=== PATIENT | male | born 1975 | race Caucasian/White ===

== ENCOUNTER 2017-05-31 18:43 | Emergency (ER) | payer BC ==
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
[2017-05-31] MEDS ORDERED: Sodium Chloride 0.9% 1000 ML 1,000 ML IV SCH (19:45)
[2017-05-31] MEDS ORDERED: Sodium Chloride 0.9% 1000 ML 1,000 ML ONE (20:26)
[2017-05-31 20:40] LABS: BASOPHIL % 0.3 % (0.0-0.4); Eosinophil % 1.8 % (0.00-5.0); Granulocytes % 72.4 % (36.0-66.0); Lymphocytes % 16.1 % (24.0-44.0); Mean Cell Volume 91.7 fl (78-100); Mean Corpuscular Hemoglobin 32.1 pg (26-32); Mean Platelet Volume 9.5 fl (6-9.5); Monocytes % 9.4 % (0.0-12.0); Platelet Count 244 K/mm3 (150-450); Red Blood Count 5.04 M/mm3 (4.1-5.6); Red Cell Distribution Width 12.8 % (11.5-14.0)
[2017-05-31 21:01] LABS: ALBUMIN 4.5 g/dL (3.4-5.0); ALKALINE PHOSPHATASE 92 U/L (46-116); ANION GAP 15.7 MEQ/L (5-15); BLOOD UREA NITROGEN 13 mg/dL (9-20); CHLORIDE 98 mEq/L (98-107); Carbon Dioxide 27.4 mEq/L (21-32); Glucose 267 MG/DL (70-110); LIPASE 130 U/L (73-393); MAGNESIUM 1.6 mg/dL (1.8-2.4); SGOT/AST 20 U/L (15-37); SGPT/ALT 41 U/L (12-78); SODIUM 137 mEq/L (136-145); Total Protein 7.7 gm/dL (6.4-8.2)
[2017-05-31 21:47] LABS: Collection Type CLEAN CATCH
[2017-05-31 21:48] LABS: ADD URINE CULTURE? NO (NO); Bilirubin NEGATIVE (NEGATIVE); Blood NEGATIVE Ery/ul (0-5); COMPLETE URINE MICROSCOPIC? NO; Glucose 1000 mg/dL (NEGATIVE); Leukocyte Esterase NEGATIVE (NEGATIVE)
[2017-05-31] MEDS ORDERED: Magnesium 1 Gm / 100 Ml D5W*** 100 ML IV ONE ×2 (22:25→22:37)
[2017-05-31] MEDS ORDERED: NovoLIN R IV ONE (22:26)
[2017-05-31] MEDS ORDERED: NovoLIN R ONE (22:36)
[2017-05-31 23:24] VITALS: BP 136/96; PULSE 83; O2SAT 96
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
== END 2017-05-31 23:20 | disposition short-term general hospital (02) ==
LOC: ED 18:43
DX: R20.0 Anesthesia of skin (principal); S16.1XXA Strain of muscle, fascia and tendon at neck level, initial encounter; S39.012A Strain of muscle, fascia and tendon of lower back, initial encounter; S29.012A Strain of muscle and tendon of back wall of thorax, initial encounter; R07.89 Other chest pain; R10.9 Unspecified abdominal pain; R51 Headache; V43.52XA Car driver injured in collision with other type car in traffic accident, initial encounter
CPT/HCPCS: 36000; 36415; 70450; 71250; 72125; 74176; 76376; 80053; 80307; 81002; 82150; 82550; 83690; 83735; 84484; 85025; 93005; 93041; 96360; 96361; 96365; 96374; 96375; 99285; J3475; L0120; A9270-GY

== ENCOUNTER 2019-09-27 14:08 | Emergency (ER) | payer BC ==
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
[2019-09-27 14:39] LABS: Hematocrit 43.2 % (42-50); Hemoglobin 14.8 gm/dl (12.5-18.0); Mean Cell Volume 94.7 fl (78-100); Mean Corpuscular Hemoglobin 32.5 pg (26-32); Mean Corpuscular Hgb Concent. 34.3 g/dl (32-36); Mean Platelet Volume 9.6 fl (7.5-11.0); Platelet Count 260 K/mm3 (150-450); Red Blood Count 4.56 M/mm3 (4.1-5.6); Red Cell Distribution Width 12.5 % (11.5-14.0); White Blood Count 6.7 K/mm3 (4.0-10.5)
[2019-09-27 14:46] LABS: INR 1.09 (0.8-3.0); PROTIME 12.3 SECONDS (8.83-12.87)
--- NOTE | 2019-09-27 14:52 | XRAY ---
Indication: Chest pain 3-4 weeks. Comparison: June 28, 2019. Portable chest again demonstrates normal heart and lungs. Bony thorax intact.
[2019-09-27] MEDS ORDERED: MORPHINE SULFATE 2 MG INJ IV ONE (14:53)
[2019-09-27] MEDS ORDERED: Zofran 4 MG/2 ML VIAL IV ONE (14:54)
[2019-09-27] MEDS ORDERED: BABY ASPIRIN 81 MG CHEW PO ONE (14:54)
[2019-09-27] MEDS ORDERED: Zofran 4 MG/2 ML VIAL ONE (14:58)
[2019-09-27] MEDS ORDERED: BABY ASPIRIN 81 MG CHEW ONE (14:58)
[2019-09-27] MEDS ORDERED: MORPHINE SULFATE 2 MG INJ ONE (14:58)
[2019-09-27 15:01] LABS: ALBUMIN 4.6 g/dL (3.5-5.0); ALKALINE PHOSPHATASE 88 U/L (38-126); ANION GAP 18.2 MEQ/L (5-15); BLOOD UREA NITROGEN 13 mg/dL (9-20); CHLORIDE 96 mmol/L (98-107); Calcium 9.5 mg/dL (8.4-10.2); Carbon Dioxide 26 mmol/L (22-30); Creatinine 1 0.98 mg/dL (0.66-1.25); Glucose 395 mg/dL (74-106); NT PRO BNP 26.3 pg/mL (0-450); Potassium 3.8 mmol/L (3.5-5.1); SGOT/AST 35 U/L (17-59); SGPT/ALT 49 U/L (0-50); SODIUM 136 mmol/L (137-145); Total Protein 7.7 g/dL (6.3-8.2)
[2019-09-27 16:04] VITALS: BP 120/81; PULSE 54; O2SAT 98
[2019-09-27 22:09] LABS: Lymphocytes 22 % (24-44); Monocyte 8 % (0.0-12.0); Neutrophils 70 % (36.-66.); Platelet Estimate NORMAL (NORMAL); Total Cells Counted 100
== END 2019-09-27 16:19 | disposition home or self-care (01) ==
LOC: ED 14:08
DX: R07.89 Other chest pain (principal); E11.65 Type 2 diabetes mellitus with hyperglycemia; I10 Essential (primary) hypertension; E78.00 Pure hypercholesterolemia, unspecified; Z86.73 Personal history of transient ischemic attack (TIA), and cerebral infarction without residual deficits
CPT/HCPCS: 36000; 36415; 71045; 80053; 83880; 84484; 85025; 85379; 85610; 93005; 93041; 94760; 96374; 96375; 99284; J2270; J2405; A9270-GY

== ENCOUNTER 2019-12-11 20:26 | Emergency (ER) | payer BC ==
[2019-12-11 20:45] VITALS: O2SAT 97
--- NOTE | 2019-12-11 21:52 | ERPHSYRPT ---
- History of Present Illness Time Seen by Provider: 12/11/19 20:32 Source: patient Exam Limitations: no limitations Patient Subjective Stated Complaint: pt states he was feeling unwell at work and had a temp of 101, denies cough or shortness of breath Triage Nursing Assessment: pt alert and oreinted, answers questions approp. pt ambulatory with steady gait noted, respiraitons nonlabored with lungs cta. skin pink warm and dry. Physician History: Patient is here with cough, fever. He does work at [employer] where there has been several COVID-19 cases. Therefore, he was sent home from work. He arrives here for further examination, possible COVID-19 testing. Location: Generalized Quality: Malaise, cough, URI Radiation: None Severity: Mild Duration: Today Timing: Gradual Modifying factors/associated signs and symptoms: Fever at home, no fever here. Timing/Duration: today Cough Quality/Degree: mild Possible Cause: no prior episodes, smoke exposure Modifying Factors: Improves With: nothing Associated Symptoms: denies symptoms International travel in last 2 weeks: No Allergies/Adverse Reactions: ketorolac tromethamine [From Toradol] Allergy (Severe, Verified 12/11/19 20:46) SEIZURE Hx Tetanus, Diphtheria Vaccination/Date Given: Yes Hx Influenza Vaccination/Date Given: No Hx Pneumococcal Vaccination/Date Given: No Immunizations Up to Date: Yes Travel Risk - International Travel Have you traveled outside of the country in past 3 weeks: No Have you or anyone close to you been diagnosed with or: No Do your reside in a community with a known COVID-19 case?: Yes If Yes where:: [place] - Coronavirus Screening Has patient experienced Coronavirus symptoms: Yes Symptoms experienced: fever(equal or > 100.4 F) Date of fever onset:: 12/11/19 - Review of Systems Constitutional: Fever, No Chills Eyes: No Symptoms Ears, Nose, & Throat: No Symptoms Respiratory: Cough, No Dyspnea Cardiac: No Chest Pain, No Edema, No Syncope Abdominal/Gastrointestinal: No Abdominal Pain, No Nausea, No Vomiting, No Diarrhea Genitourinary Symptoms: No Dysuria Musculoskeletal: No Back Pain, No Neck Pain Skin: No Rash Neurological: No Dizziness, No Focal Weakness, No Sensory Changes Psychological: No Symptoms Endocrine: No Symptoms All Other Systems: Reviewed and Negative - Past Medical History Pertinent Past Medical History: Yes Neurological History: TIA Cardiac History: High Cholesterol, Hypertension Respiratory History: No Pertinent History Endocrine Medical History: Diabetes Type II Musculoskeletal History: No Pertinent History GI Medical History: No Pertinent History History: No Pertinent History Psycho-Social History: No Pertinent History Male Reproductive Disorders: No Pertinent History - Past Surgical History Past Surgical History: Yes Neuro Surgical History: No Pertinent History Cardiac: No Pertinent History Respiratory: No Pertinent History Gastrointestinal: No Pertinent History Genitourinary: No Pertinent History Musculoskeletal: No Pertinent History Male Surgical History: No Pertinent History Other Surgical History: urethral surgery - Social History Smoking Status: Current every day smoker How long have you smoked: years Exposure to second hand smoke: Yes Drug Use: none Patient Lives Alone: No - Nursing Vital Signs Nursing Vital Signs: Initial Vital Signs Temperature 98.0 F 12/11/19 20:40 Pulse Rate 86 12/11/19 20:40 Respiratory Rate 18 12/11/19 20:40 Blood Pressure 147/89 12/11/19 20:40 O2 Sat by Pulse Oximetry 97 12/11/19 20:40 Pain Scale Pain Intensity 0 - Physical Exam General Appearance: no apparent distress, alert Eye Exam: PERRL/EOMI, eyes nml inspection Ears, Nose, Throat Exam: normal ENT inspection, TMs normal, pharynx normal, moist mucous membranes Neck Exam: normal inspection, non-tender, supple, full range of motion Respiratory Exam: normal breath sounds, lungs clear, No respiratory distress Cardiovascular Exam: regular rate/rhythm, normal heart sounds Gastrointestinal/Abdomen Exam: soft, No tenderness Back Exam: normal inspection, No CVA tenderness, No vertebral tenderness Extremity Exam: normal inspection, normal range of motion Neurologic Exam: alert, oriented x 3, cooperative, normal mood/affect, sensation nml, No motor deficits Skin Exam: normal color, warm, dry, No rash Lymphatic Exam: No adenopathy SpO2 Interpretation: normal SpO2: 97 Ordered Tests: Active Orders 24 hr Category Date Time Status Isolation, Initiate & Maintain Q12H Care 12/11/19 20:46 Active - Progress Progress: improved Air Movement: good Progress Note: 12/11/19 21:57 Patient looks well with no distress here. Lung sounds are clear. Overall physical exam is unremarkable. Patient has no fever here either. I did discuss over the phone with on-call infection control nurse, Delaney. She did not recommend, did not give permission to test the patient for COVID-19. She states that they like the patient to have symptoms for 2 to 3 days and then be tested by the PCP. I did explain this to the patient. I discussed that he will be in quarantine the next 14 days or until which time he can be tested by his PCP. He can return here at any given time for new or changing symptoms. He states his understanding will follow-up as described. Blood Culture(s) Obtained: No Antibiotics given: No Counseled pt/family regarding: diagnosis, need for follow-up - Departure Departure Disposition: Home Clinical Impression: Suspected COVID-19 virus infection, URI (upper respiratory infection) Condition: Stable Critical Care Time: No Referrals: YOLANDA DONALDSON [Primary Care Provider] - Instructions: Fever, Adult (DC) Additional Instructions: Follow-up with Dr. Donaldson in 2 to 3 days for reexam and COVID testing. Until then you are directed to self quarantine. You may return here at any given time for new or changing symptoms. Please read over quarantine instructions that were provided to you by us. If you have any questions you can call or return here at any time.
[2019-12-11 22:22] VITALS: BP 140/88; PULSE 78
== END 2019-12-11 22:35 | disposition home or self-care (01) ==
LOC: ED 20:26
DX: J06.9 Acute upper respiratory infection, unspecified (principal); Z20.828 Contact with and (suspected) exposure to other viral communicable diseases
CPT/HCPCS: 99283

== ENCOUNTER 2020-09-09 04:44 | Observation (INO) | payer BC ==
--- NOTE | 2020-09-09 05:07 | ERPHSYRPT ---
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) Exam Limitations: clinical condition Timing/Duration: today Severity: moderate Character of Deficits: new weakness, impaired speech Deficits: weak Baseline/Normal Cognition: alert oriented x 3 Current Cognition: alert but confused Baseline Gait: walks w/o assistance Associated Symptoms: confusion, paresthesia Allergies/Adverse Reactions: ketorolac tromethamine [From Toradol] Allergy (Severe, Verified 09/09/20 05:16) SEIZURE Home Medications: Amitriptyline HCl 25 mg PO DAILY 09/09/20 [History] Ezetimibe 10 mg PO DAILY 09/09/20 [History] Hx Tetanus, Diphtheria Vaccination/Date Given: Yes Hx Influenza Vaccination/Date Given: No Hx Pneumococcal Vaccination/Date Given: No - Review of Systems Constitutional: No Fever, No Chills Eyes: No Symptoms Ears, Nose, & Throat: No Symptoms Respiratory: No Cough, No Dyspnea Cardiac: No Chest Pain, No Edema, No Syncope Abdominal/Gastrointestinal: No Abdominal Pain, No Nausea, No Vomiting, No Diarrhea Genitourinary Symptoms: No Dysuria Musculoskeletal: No Back Pain, No Neck Pain Skin: No Rash Neurological: No Dizziness, No Focal Weakness, No Sensory Changes Psychological: No Symptoms Endocrine: No Symptoms All Other Systems: Reviewed and Negative - Past Medical History Pertinent Past Medical History: Yes Neurological History: TIA ENT History: No Pertinent History Cardiac History: High Cholesterol, Hypertension Respiratory History: No Pertinent History Endocrine Medical History: Diabetes Type II Musculoskeletal History: No Pertinent History GI Medical History: No Pertinent History History: No Pertinent History Psycho-Social History: No Pertinent History Male Reproductive Disorders: No Pertinent History - Past Surgical History Past Surgical History: Yes Neuro Surgical History: No Pertinent History Cardiac: No Pertinent History Respiratory: No Pertinent History Gastrointestinal: No Pertinent History Genitourinary: No Pertinent History Musculoskeletal: No Pertinent History Male Surgical History: No Pertinent History Other Surgical History: urethral surgery - Social History Smoking Status: Current every day smoker How long have you smoked: years Exposure to second hand smoke: Yes Drug Use: none Patient Lives Alone: No - Nursing Vital Signs Nursing Vital Signs: Initial Vital Signs Temperature 98.3 F 09/09/20 04:53 Pulse Rate 89 09/09/20 04:53 Respiratory Rate 16 09/09/20 04:53 Blood Pressure 142/97 09/09/20 04:53 O2 Sat by Pulse Oximetry 98 09/09/20 04:53 Pain Scale Pain Intensity 0 - Acosta Coma Scale Best Eye Response (Merlin): (4) open spontaneously Best Verbal Response (Acosta): (4) confused conversation Best Motor Response (Acosta): (6) obeys commands Merlin Total: 14 - Physical Exam General Appearance: no apparent distress, alert Eye Exam: bilateral eye: PERRL, EOMI Ears, Nose, Throat Exam: normal ENT inspection, moist mucous membranes Neck Exam: normal inspection, non-tender, supple Respiratory: normal breath sounds, lungs clear, airway intact, No respiratory distress Cardiovascular: regular rate/rhythm, No edema Gastrointestinal: soft, No tenderness, No distention Rectal Exam: deferred Back Exam: normal inspection Extremity Exam: normal inspection, No pedal edema Peripheral Pulses: carotid (R): 2+, carotid (L): 2+, femoral (R): 2+, femoral (L): 2+, dorsalis-pedis (R): 2+, dorsalis-pedis (L): 2+ Mental Status: alert, cooperative, disoriented to time manager engagement Exam: PERRL, tongue midline Coordination/Gait: normal finger to nose, normal gait Motor/Sensory: no pronator drift, weak motor strength LUE DTR: bicep (R): 2+, bicep (L): 2+, tricep (R): 2+, tricep (L): 2+, knee (R): 2+, knee (L): 2+, ankle (R): 2+, ankle (L): 2+ Skin Exam: normal color, warm, dry, No rash SpO2 Interpretation: normal SpO2: 98 O2 Delivery: Room Air - Course Nursing assessment & vital signs reviewed: Yes EKG Interpreted by Me: Sinus Rhythm, NORMAL AXIS, NORMAL INTERVALS, NORMAL QRS, Non-specific ST Changes - Radiology Exams Chest X-ray Interpretation: Reviewed by me, No Pneumothorax, Other (interstitial pattern and granulomata similar to prior) - CT Exams Head CT Interpretation: Tele-radiologist Report, No/Intracranial Hemorrhag Ordered Tests: Active Orders 24 hr Category Date Time Status Management Development Specialist STAT Care 09/09/20 05:10 Active Clean Catch Urine Specimen STAT Care 09/09/20 05:07 Active EKG-ER Only STAT Care 09/09/20 05:07 Active IV Insertion STAT Care 09/09/20 05:07 Active NPO (ED) STAT Care 09/09/20 05:07 Active Pulse Oximetry (ED) STAT Care 09/09/20 05:07 Active CHEST 1 VIEW (PORTABLE) Stat Exams 09/09/20 05:08 Taken HEAD WITHOUT CONTRAST [CT] Stat Exams 09/09/20 05:15 Taken CBC W DIFF Stat Lab 09/09/20 05:07 Completed CMP Stat Lab 09/09/20 05:07 Completed ETHYL ALCOHOL Stat Lab 09/09/20 05:07 Completed Lactic Acid Stat Lab 09/09/20 05:15 Completed POCT GLUCOSE Stat Lab 09/09/20 04:54 Completed PROTIME WITH INR Stat Lab 09/09/20 05:07 Completed PTT Stat Lab 09/09/20 05:07 Completed TROPONIN Q3H Lab 09/09/20 05:15 Completed TROPONIN Q3H Lab 09/09/20 08:15 Ordered TROPONIN Q3H Lab 09/09/20 11:15 Ordered TROPONIN Q3H Lab 09/09/20 14:15 Ordered TROPONIN Q3H Lab 09/09/20 17:15 Ordered UA W/RFX UR CULTURE Stat Lab 09/09/20 05:19 Completed Urine Triage Profile Stat Lab 09/09/20 05:19 Completed Medication Summary Generic Name Dose Route Start Last Admin Trade Name Freq PRN Reason Stop Dose Admin Sodium Chloride 1,000 mls @ 100 mls/hr 09/09/20 05:15 09/09/20 07:10 Sodium Chloride 0.9% 1000 Ml IV 10/09/20 05:14 100 mls/hr .Q10H [place] Administration Discontinued Medications Generic Name Dose Route Start Last Admin Trade Name Freq PRN Reason Stop Dose Admin Sodium Chloride 1,000 mls @ 999 mls/hr 09/09/20 05:26 09/09/20 07:19 Sodium Chloride 0.9% 1000 Ml IV 09/09/20 06:26 Infused .Q1H1M STA Infusion Lab/Rad Data: Laboratory Result Diagrams 09/09/20 05:07 09/09/20 05:07 Laboratory Results 09/09/20 09/09/20 09/09/20 Range/Units 05:19 05:19 05:15 WBC (4.0-10.5) K/mm3 RBC (4.1-5.6) M/mm3 Hgb (12.5-18.0) gm/dl Hct (42-50) % MCV (78-100) fl MCH (26-32) pg MCHC (32-36) g/dl RDW (11.5-14.0) % Plt Count (150-450) K/mm3 MPV (7.5-11.0) fl Gran % (36.0-66.0) % Eos # (Auto) (0-0.5) Absolute Lymphs (auto) (1.0-4.6) Absolute Monos (auto) (0.0-1.3) Lymphocytes % (24.0-44.0) % Monocytes % (0.0-12.0) % Eosinophils % (0.00-5.0) % Basophils % (0.0-0.4) % Absolute Granulocytes (1.4-6.9) Basophils # (0-0.4) PT (8.83-12.87) SECONDS INR (0.8-3.0) APTT (24.1-36.1) SECONDS Sodium (137-145) mmol/L Potassium (3.5-5.1) mmol/L Chloride (98-107) mmol/L Carbon Dioxide (22-30) mmol/L Anion Gap (5-15) MEQ/L BUN (9-20) mg/dL Creatinine (0.66-1.25) mg/dL Estimated GFR ML/MIN Glucose (74-106) mg/dL POC Glucometer (74 to 106) mg/dL Lactic Acid (0.4-2.0) Calcium (8.4-10.2) mg/dL Total Bilirubin (0.2-1.3) mg/dL AST (17-59) U/L ALT (0-50) U/L Alkaline Phosphatase (38-126) U/L Troponin I < 0.012 (0.000-0.034) ng/mL Serum Total Protein (6.3-8.2) g/dL Albumin (3.5-5.0) g/dL Urine Color YELLOW (YELLOW) Urine Appearance CLEAR (CLEAR) Urine pH 6.0 (5-6) Ur Specific [employer] 1.021 (1.005-1.025) Urine Protein NEGATIVE (Negative) Urine Ketones NEGATIVE (NEGATIVE) Urine Blood NEGATIVE (0-5) Mikey/ul Urine Nitrite NEGATIVE (NEGATIVE) Urine Bilirubin NEGATIVE (NEGATIVE) Urine Urobilinogen NEGATIVE (0-1) mg/dL Ur Leukocyte Esterase NEGATIVE (NEGATIVE) Urine WBC (Auto) NONE (0-5) /HPF Urine RBC (Auto) NONE (0-2) /HPF U Epithel Cells (Auto) NONE (FEW) /HPF Urine Bacteria (Auto) NONE (NEGATIVE) /HPF Urine Culture Reflexed NO (NO) Urine Glucose >=500 (NEGATIVE) mg/dL Urine Opiates Level NEGATIVE (NEGATIVE) Ur Methadone NEGATIVE (NEGATIVE) Urine Barbiturates NEGATIVE (NEGATIVE) Ur Phencyclidine (PCP) NEGATIVE (NEGATIVE) Urine Amphetamine NEGATIVE (NEGATIVE) U Benzodiazepine Level NEGATIVE (NEGATIVE) Urine Cocaine NEGATIVE (NEGATIVE) Urine Marijuana (THC) NEGATIVE (NEGATIVE) Ethyl Alcohol (0-10) mg/dL 09/09/20 09/09/20 09/09/20 Range/Units 05:15 05:07 05:07 WBC (4.0-10.5) K/mm3 RBC (4.1-5.6) M/mm3 Hgb (12.5-18.0) gm/dl Hct (42-50) % MCV (78-100) fl MCH (26-32) pg MCHC (32-36) g/dl RDW (11.5-14.0) % Plt Count (150-450) K/mm3 MPV (7.5-11.0) fl Gran % (36.0-66.0) % Eos # (Auto) (0-0.5) Absolute Lymphs (auto) (1.0-4.6) Absolute Monos (auto) (0.0-1.3) Lymphocytes % (24.0-44.0) % Monocytes % (0.0-12.0) % Eosinophils % (0.00-5.0) % Basophils % (0.0-0.4) % Absolute Granulocytes (1.4-6.9) Basophils # (0-0.4) PT 11.1 (8.83-12.87) SECONDS INR 0.98 (0.8-3.0) APTT 28.6 (24.1-36.1) SECONDS Sodium 133 L (137-145) mmol/L Potassium 3.8 (3.5-5.1) mmol/L Chloride 97 L (98-107) mmol/L Carbon Dioxide 26 (22-30) mmol/L Anion Gap 13.3 (5-15) MEQ/L BUN 15 (9-20) mg/dL Creatinine 0.85 (0.66-1.25) mg/dL Estimated GFR > 60.0 ML/MIN Glucose 338 H (74-106) mg/dL POC Glucometer (74 to 106) mg/dL Lactic Acid 2.6 H (0.4-2.0) Calcium 9.5 (8.4-10.2) mg/dL Total Bilirubin 0.30 (0.2-1.3) mg/dL AST 47 (17-59) U/L ALT 68 H (0-50) U/L Alkaline Phosphatase 73 (38-126) U/L Troponin I (0.000-0.034) ng/mL Serum Total Protein 6.4 (6.3-8.2) g/dL Albumin 4.1 (3.5-5.0) g/dL Urine Color (YELLOW) Urine Appearance (CLEAR) Urine pH (5-6) Ur Specific [employer] [place] (1.005-1.025) Urine Protein (Negative) Urine Ketones (NEGATIVE) Urine Blood (0-5) Mikey/ul Urine Nitrite (NEGATIVE) Urine Bilirubin (NEGATIVE) Urine Urobilinogen (0-1) mg/dL Ur Leukocyte Esterase (NEGATIVE) Urine WBC (Auto) (0-5) /HPF Urine RBC (Auto) (0-2) /HPF U Epithel Cells (Auto) (FEW) /HPF Urine Bacteria (Auto) (NEGATIVE) /HPF Urine Culture Reflexed (NO) Urine Glucose (NEGATIVE) mg/dL Urine Opiates Level (NEGATIVE) Ur Methadone (NEGATIVE) Urine Barbiturates (NEGATIVE) Ur Phencyclidine (PCP) (NEGATIVE) Urine Amphetamine (NEGATIVE) U Benzodiazepine Level (NEGATIVE) Urine Cocaine (NEGATIVE) Urine Marijuana (THC) (NEGATIVE) Ethyl Alcohol < 10 (0-10) mg/dL 09/09/20 09/09/20 Range/Units 05:07 04:54 WBC 7.3 (4.0-10.5) K/mm3 RBC 4.12 (4.1-5.6) M/mm3 Hgb 13.1 (12.5-18.0) gm/dl Hct 38.4 L (42-50) % MCV 93.2 (78-100) fl MCH 31.8 (26-32) pg MCHC 34.1 (32-36) g/dl RDW 12.4 (11.5-14.0) % Plt Count 261 (150-450) K/mm3 MPV 9.4 (7.5-11.0) fl Gran % 67.6 H (36.0-66.0) % Eos # (Auto) 0.10 (0-0.5) Absolute Lymphs (auto) 1.68 (1.0-4.6) Absolute Monos (auto) 0.56 (0.0-1.3) Lymphocytes % 23.0 L (24.0-44.0) % Monocytes % 7.7 (0.0-12.0) % Eosinophils % 1.4 (0.00-5.0) % Basophils % 0.3 (0.0-0.4) % Absolute Granulocytes 4.93 (1.4-6.9) Basophils # 0.02 (0-0.4) PT (8.83-12.87) SECONDS INR (0.8-3.0) APTT (24.1-36.1) SECONDS Sodium (137-145) mmol/L Potassium (3.5-5.1) mmol/L Chloride (98-107) mmol/L Carbon Dioxide (22-30) mmol/L Anion Gap (5-15) MEQ/L BUN (9-20) mg/dL Creatinine (0.66-1.25) mg/dL Estimated GFR ML/MIN Glucose (74-106) mg/dL POC Glucometer 318 H (74 to 106) mg/dL Lactic Acid (0.4-2.0) Calcium (8.4-10.2) mg/dL Total Bilirubin (0.2-1.3) mg/dL AST (17-59) U/L ALT (0-50) U/L Alkaline Phosphatase (38-126) U/L Troponin I (0.000-0.034) ng/mL Serum Total Protein (6.3-8.2) g/dL Albumin (3.5-5.0) g/dL Urine Color (YELLOW) Urine Appearance (CLEAR) Urine pH (5-6) Ur Specific [employer] [place] (1.005-1.025) Urine Protein (Negative) Urine Ketones (NEGATIVE) Urine Blood (0-5) Mikey/ul Urine Nitrite (NEGATIVE) Urine Bilirubin (NEGATIVE) Urine Urobilinogen (0-1) mg/dL Ur Leukocyte Esterase (NEGATIVE) Urine WBC (Auto) (0-5) /HPF Urine RBC (Auto) (0-2) /HPF U Epithel Cells (Auto) (FEW) /HPF Urine Bacteria (Auto) (NEGATIVE) /HPF Urine Culture Reflexed (NO) Urine Glucose (NEGATIVE) mg/dL Urine Opiates Level (NEGATIVE) Ur Methadone (NEGATIVE) Urine Barbiturates (NEGATIVE) Ur Phencyclidine (PCP) (NEGATIVE) Urine Amphetamine (NEGATIVE) U Benzodiazepine Level (NEGATIVE) Urine Cocaine (NEGATIVE) Urine Marijuana (THC) (NEGATIVE) Ethyl Alcohol (0-10) mg/dL - Progress Progress: improved, re-examined Progress Note: 09/09/20 05:18 initial GCS of 14 , but now 15 and oriented x3 , however left sided slight weakness of LUE and LLE are still noted, but also improved . Pt states feels like his prior TIA back in 2010. 09/09/20 05:21 09/09/20 07:21 discussed with pt and Neuro tele and Dr. Parsons and will place in on Obs for TIA with all in agreement with thes neurologist recommendation. Discussed with : Corbin Will see patient in: hospital (observation) Counseled pt/family regarding: lab results, diagnosis, need for follow-up, rad results - Departure Departure Disposition: Observation Clinical Impression: TIA (transient ischemic attack), Hyperglycemia Condition: Good Critical Care Time: Yes Critical Care Time(excluding separately billable procedures): Critical 30-74 mins (critical care for CVA symptoms and eval approx 30 minutes) Referrals: YOLANDA GORDON [Primary Care Provider] -
[2020-09-09] MEDS ORDERED: Sodium Chloride 0.9% 1000 ML 1,000 ML IV SCH ×2 (05:15→07:50)
[2020-09-09] MEDS ORDERED: Sodium Chloride 0.9% 1000 ML 1,000 ML ONE ×2 (05:19→07:06)
[2020-09-09 05:25] LABS: Absolute Neutrophil Ct (ANC) 4.93 (1.4-6.9); BASOPHIL % 0.3 % (0.0-0.4); Basophil (Absolute #) 0.02 (0-0.4); Eosinophil % 1.4 % (0.00-5.0); Hematocrit 38.4 % (42-50); Hemoglobin 13.1 gm/dl (12.5-18.0); Lymphocyte (Absolute #) 1.68 (1.0-4.6); Mean Cell Volume 93.2 fl (78-100); Mean Corpuscular Hemoglobin 31.8 pg (26-32); Mean Corpuscular Hgb Concent. 34.1 g/dl (32-36); Mean Platelet Volume 9.4 fl (7.5-11.0); Monocyte (Absolute #) 0.56 (0.0-1.3); Monocytes % 7.7 % (0.0-12.0); Neutrophil % 67.6 % (36.0-66.0); Platelet Count 261 K/mm3 (150-450); Red Blood Count 4.12 M/mm3 (4.1-5.6); Red Cell Distribution Width 12.4 % (11.5-14.0); White Blood Count 7.3 K/mm3 (4.0-10.5)
[2020-09-09 05:26] LABS: INR 0.98 (0.8-3.0); PROTIME 11.1 SECONDS (8.83-12.87)
[2020-09-09] MEDS ORDERED: Sodium Chloride 0.9% 1000 ML 1,000 ML IV STA (05:26)
[2020-09-09 05:29] LABS: Appearance CLEAR (CLEAR); Bilirubin NEGATIVE (NEGATIVE); Blood NEGATIVE Ery/ul (0-5); Glucose >=500 mg/dL (NEGATIVE); Ketones NEGATIVE (NEGATIVE); Leukocyte Esterase NEGATIVE (NEGATIVE); Nitrite NEGATIVE (NEGATIVE); Protein,Urine Dip NEGATIVE (Negative); Specific Gravity 1.021 (1.005-1.025); Urobilinogen NEGATIVE mg/dL (0-1)
[2020-09-09 05:29] LABS: PTT 28.6 SECONDS (24.1-36.1)
[2020-09-09 05:31] LABS: ALBUMIN 4.1 g/dL (3.5-5.0); ALKALINE PHOSPHATASE 73 U/L (38-126); ANION GAP 13.3 MEQ/L (5-15); BLOOD UREA NITROGEN 15 mg/dL (9-20); CHLORIDE 97 mmol/L (98-107); Calcium 9.5 mg/dL (8.4-10.2); Carbon Dioxide 26 mmol/L (22-30); Creatinine 1 0.85 mg/dL (0.66-1.25); EST GLOMERULAR FILTRATION RATE > 60.0 ML/MIN; ETHYL ALCOHOL < 10 mg/dL (0-10); Glucose 338 mg/dL (74-106); Potassium 3.8 mmol/L (3.5-5.1); SGOT/AST 47 U/L (17-59); SGPT/ALT 68 U/L (0-50); SODIUM 133 mmol/L (137-145); Total Protein 6.4 g/dL (6.3-8.2)
[2020-09-09 05:42] LABS: Amphetamine,Urine NEGATIVE (NEGATIVE); Barbiturate,Urine NEGATIVE (NEGATIVE); Benzodiazepine,Urine NEGATIVE (NEGATIVE); Cocaine,Urine NEGATIVE (NEGATIVE); Methadone,Urine NEGATIVE (NEGATIVE); Opiate,Urine NEGATIVE (NEGATIVE); PCP,Urine NEGATIVE (NEGATIVE); THC,Urine NEGATIVE (NEGATIVE)
[2020-09-09] MEDS ORDERED: Zofran 4 MG/2 ML VIAL IV PRN (07:50)
[2020-09-09] MEDS ORDERED: MORPHINE SULFATE 2 MG INJ IV PRN (07:50)
[2020-09-09] MEDS ORDERED: TYLENOL 325 MG PO PRN (07:50)
[2020-09-09] MEDS ORDERED: HUMULIN R SQ PRN (07:50)
--- NOTE | 2020-09-09 08:59 | XRAY ---
Indication: Acute mental status change. Slurred speech. Paresthesia. Comparison: September 27, 2019. Portable chest clear of focal infiltrate, consolidation, or large effusion. Heart is not enlarged. Bony thorax intact. Impression: Continued nonacute chest.
[2020-09-09] MEDS: Nicoderm CQ 21 MG TOP SCH (09:07)
[2020-09-09] MEDS: PLAVIX 75 MG Tablet PO SCH (09:08)
[2020-09-09] MEDS: Pepcid 20 MG VIAL IV SCH ×2 (09:08→21:22)
[2020-09-09] MEDS: ECOTRIN 81 MG PO SCH (09:49)
[2020-09-09] MEDS ORDERED: NPH HUMAN INSULIN ISOPHANE SQ SCH (10:00)
[2020-09-09] MEDS ORDERED: Ecotrin 325 MG PO SCH (10:00)
[2020-09-09] MEDS: ELAVIL 25 MG PO SCH (10:51)
[2020-09-09] MEDS: Glucophage 500 MG PO SCH ×2 (10:51→16:27)
[2020-09-09] MEDS: Zetia 10 MG PO SCH ×2 (10:54→10:56)
[2020-09-09] MEDS: Novolin N SQ SCH ×2 (10:55→16:27)
[2020-09-09] MEDS ORDERED: XANAX 1 MG PO ONE (12:30)
[2020-09-09] MEDS: HUMULIN R SQ SCH ×2 (14:34→16:27)
--- NOTE | 2020-09-09 16:42 | XRAY ---
Indication: TIA. Two-dimensional sonogram and color Doppler imaging of the carotid arteries of the neck performed. Comparison: None Examination of the right carotid circulation negative for focal plaquing, critical stenosis, or obstruction. Proximal internal carotid artery is mildly tortuous. PSV of the CCA is 119 cm/s. PSV of the ICA is 84 cm/s. ICA/CCA ratio is 0.7. Normal antegrade vertebral artery flow. Examination of the left carotid circulation demonstrates widely patent common carotid, carotid bulb, internal carotid, and external carotid arteries. PSV of the CCA is 95 m/s. PSV of the ICA is 89 cm/s. ICA/CCA ratio is 0.9. Normal antegrade vertebral artery flow. Impression: Left and right carotid arteries of the neck are negative for significant plaquing, critical stenosis, or obstruction. Velocity measurements and ratios are also negative for hemodynamically significant flow-limiting stenosis.
[2020-09-10 05:13] LABS: Absolute Neutrophil Ct (ANC) 2.64 (1.4-6.9); BASOPHIL % 0.6 % (0.0-0.4); Basophil (Absolute #) 0.03 (0-0.4); Eosinophil % 2.5 % (0.00-5.0); Eosinophil (Absolute #) 0.13 (0-0.5); Hemoglobin 13.1 gm/dl (12.5-18.0); Lymphocyte (Absolute #) 1.98 (1.0-4.6); Lymphocytes % 37.5 % (24.0-44.0); Mean Cell Volume 94.4 fl (78-100); Mean Corpuscular Hemoglobin 31.7 pg (26-32); Mean Corpuscular Hgb Concent. 33.6 g/dl (32-36); Mean Platelet Volume 9.5 fl (7.5-11.0); Monocytes % 9.5 % (0.0-12.0); Neutrophil % 49.9 % (36.0-66.0); Platelet Count 216 K/mm3 (150-450); Red Blood Count 4.13 M/mm3 (4.1-5.6); Red Cell Distribution Width 12.7 % (11.5-14.0); White Blood Count 5.3 K/mm3 (4.0-10.5)
[2020-09-10 05:51] LABS: ALBUMIN 3.3 g/dL (3.5-5.0); ALKALINE PHOSPHATASE 46 U/L (38-126); ANION GAP 9.7 MEQ/L (5-15); BLOOD UREA NITROGEN 10 mg/dL (9-20); CHLORIDE 104 mmol/L (98-107); Calcium 8.9 mg/dL (8.4-10.2); Carbon Dioxide 25 mmol/L (22-30); EST GLOMERULAR FILTRATION RATE > 60.0 ML/MIN; Glucose 215 mg/dL (74-106); Potassium 3.6 mmol/L (3.5-5.1); SGOT/AST 42 U/L (17-59); SGPT/ALT 63 U/L (0-50); SODIUM 136 mmol/L (137-145); Total Protein 5.8 g/dL (6.3-8.2)
[2020-09-10 07:46] VITALS: BP 120/69; PULSE 61; O2SAT 98
[2020-09-10] MEDS: Nicoderm CQ 21 MG TOP SCH (09:27)
[2020-09-10] MEDS: ECOTRIN 81 MG PO SCH (09:27)
[2020-09-10] MEDS: Glucophage 500 MG PO SCH (09:27)
[2020-09-10] MEDS: Pepcid 20 MG VIAL IV SCH (09:27)
[2020-09-10] MEDS: ELAVIL 25 MG PO SCH (09:28)
[2020-09-10] MEDS: PLAVIX 75 MG Tablet PO SCH (09:28)
[2020-09-10] MEDS: Novolin N SQ SCH (09:28)
[2020-09-10] MEDS: HUMULIN R SQ SCH (09:29)
--- NOTE | 2020-09-11 07:39 | XRAY ---
Indication: Slurred speech, weakness, dizziness, confusion, and paresthesia. Multiple contiguous axial images obtained through the head without contrast. Comparison: May 31, 2017. No acute intracranial hemorrhage, abnormal extra axial fluid collection, of mass effect. Tint remote right basal ganglia lacunar infarct. Fourth ventricle is midline. Bony calvarium. Visualized paranasal sinuses and mastoid air cells are clear. Impression: Right basal ganglia remote lacunar infarct. Remaining CT head without contrast exam is negative. Comment: Preliminary interpretation was made by [facility]. No critical discrepancy.
--- NOTE | 2020-09-11 10:24 | ECHO ---
Transthoracic echocardiographic examination and color Doppler was done on 09/09/2020. INDICATION: Transient ischemic attack. IMPRESSION: 1) NO REGIONAL WALL MOTION ABNORMALITY. ESTIMATED GLOBAL LEFT VENTRICULAR EJECTION FRACTION BETWEEN 60 AND 70%. 2) MILD MITRAL REGURGITATION. 3) TRACE TRICUSPID REGURGITATION. RIGHT VENTRICULAR SYSTOLIC PRESSURE OF 31 MM OF MERCURY. 4) TRACE AORTIC REGURGITATION. 5) LEFT VENTRICULAR HYPERTROPHY. 6) MILDLY DILATED ASCENDING AORTA MEASURING ABOUT 4.2 CM. The left ventricle is visualized and demonstrated adequate motion of all the segments. Estimated global left ventricular ejection fraction of around 60 to 70%. There is concentric left ventricular hypertrophy. The mitral valve is seen and this opens adequately. There is mild mitral regurgitation. Left atrium is normal. The aortic valve is mildly thickened but opens adequately. The peak gradient across the left ventricular outflow tract was 13. The ascending aorta appears to be mildly dilated measuring about 4.2 cm. There is trace tricuspid regurgitation. The right side chambers are normal. There is trace tricuspid regurgitation. Right ventricular systolic pressure of 31 mm of [place].
--- NOTE | 2020-09-11 14:46 | SSS ---
DISCHARGE DIAGNOSES: 1) TRANSIENT ISCHEMIC ATTACK. 2) DIABETES MELLITUS TYPE II, OUT OF CONTROL. HISTORY: The patient is a 45 year old white male patient who was working at his job at the [employer] when apparently he began having some issues with some numbness of the left side of the face. He apparently either passed out or fell asleep and they had a difficult time arousing him. Therefore they brought him to the emergency room for evaluation and management. By the time the patient arrived he was essentially back to normal again with regards to the numbness in the face and impaired speech. By the time I saw him on the morning of 09/09/2020, he seemed to be back to his usual state of health. The patient did have a tele-neurology consult obtained in the emergency room and was recommended MRI and observation. PAST MEDICAL/SURGICAL HISTORY: Significant for his diabetes mellitus type II, hypertension and hyperlipidemia. He did also have a previous transient ischemic attack by history. HOME MEDICATIONS: Amitriptyline 25 mg at night, Zetia 10 mg a day. He takes Humulin R 15 units twice a day, Metformin 500 mg twice a day, Humulin N 30 units twice a day. ALLERGIES: KETOROLAC TROMETHAMINE. SOCIAL HISTORY: The patient does smoke and has no admitted drug use. PHYSICAL EXAMINATION: The patient's vital signs on admission showed his temperature to be 98.3F, pulse 89, respiratory rate 16 and blood pressure 142/97. O2 saturation 98%. HEENT: Normocephalic, atraumatic. Pupils equal round reactive to light. Extraocular movements intact. Oropharynx is pink and moist. NECK: Supple without lymphadenopathy, thyromegaly or JVD. CHEST: Clear to auscultation. HEART: Regular rate and rhythm without murmurs, rubs or gallops. ABDOMEN: Soft. No palpable masses. EXTREMITIES: Without cyanosis, clubbing or edema. NEUROLOGIC: The patient appears to be neurologically intact with no focal deficits noted. LAB DATA AND TESTS: INR of 0.98. UA normal except for specific gravity of 1.021 and greater than 500 glucose. His initial lactic acid was 2.6. His sugar was 338, BUN 15, creatinine 85, sodium slightly low at 133. SGPT was slightly elevated at 68. AST was normal at 47. ETOH was negative. Urine drug screen was negative. Troponin was less than 0.012. CBC was normal. The patient had CT scan of the head which showed no obvious intracranial problems. Tele-neurology consult requested MRI which the patient attempted twice but could not do. He had echocardiogram performed and results are pending. Carotid Doppler's were negative. HOSPITAL COURSE: By the next morning the patient's blood sugar was 215. Other labs were essentially normal. He did have a hemoglobin A1C measured at 11.13. ASSESSMENT: A patient with transient ischemic attack. He will be home now with aspirin and Plavix at 75 mg a day and his other medications. We have asked him to record his blood sugars and see me in the office in the next week at which time we will attempt to improve his diabetic control.
== END 2020-09-10 09:54 | disposition home or self-care (01) ==
LOC: ED 04:44 → ICU 07:45
PROVIDERS: ADMIT Family Medicine; ATTEND Family Medicine
DX: G45.9 Transient cerebral ischemic attack, unspecified (principal); E11.65 Type 2 diabetes mellitus with hyperglycemia; R53.1 Weakness; R41.0 Disorientation, unspecified; R47.9 Unspecified speech disturbances; Z79.899 Other long term (current) drug therapy; I10 Essential (primary) hypertension; E78.00 Pure hypercholesterolemia, unspecified; Z86.73 Personal history of transient ischemic attack (TIA), and cerebral infarction without residual deficits; E78.5 Hyperlipidemia, unspecified; Z79.4 Long term (current) use of insulin; Z79.01 Long term (current) use of anticoagulants
CPT/HCPCS: 36000; 36415; 70450; 71045; 80053; 80307; 81001; 82947; 83036; 83605; 84484; 85025; 85610; 85730; 93005; 93041; 93268; 93306; 93880; 94760; 96360; 99285; 99291; G0378; J1815; A9270-GY; G0480

== ENCOUNTER 2021-09-01 13:17 | Emergency (ER) | payer BC ==
[2021-09-01] MEDS ORDERED: Zofran 4 MG/2 ML VIAL IV ONE (13:43)
[2021-09-01] MEDS ORDERED: MORPHINE SULFATE 4 MG INJ IV ONE (13:43)
[2021-09-01] MEDS ORDERED: Sodium Chloride 0.9% 1000 ML 1,000 ML IV SCH (13:45)
--- NOTE | 2021-09-01 13:47 | ERPHSYRPT ---
- History of Present Illness Time Seen by Provider: 09/01/21 13:35 Historian: patient Exam Limitations: no limitations Patient Subjective Stated Complaint: abdominal pain Triage Nursing Assessment: Patient ambulated back to ED and transferred self to bed. Patient A+O X3. Patient's skin pink, warm and dry. Patient complains of mid abdominal pain that started last that has gotten worse. Patient states pain is constant sharp pain 7/10. Patient complains of nausea. Patient states he had diarrhea, but took immodium and now his stool is dark and thick. Physician History: Patient is a 46-year-old male presents to our ED for evaluation of abdominal pain. Patient was seen at [facility] and brought to our ED for an evaluation. Patient has been experiencing nausea and diarrhea. Patient has been taking Imodium for diarrhea. Patient also states his stool has had been dark. [facility] believes he may have a GI bleed. Symptoms are mild to moderate in intensity. No specific worsening improving factors. Pain rated 7 out of 10. Patient voices no other complaints or concerns at this time. Timing/Duration: day(s) (4 days) Activities at Onset: none Quality: aching Abdominal Pain Onset Location: epigastric Pain Radiation: no radiation Severity of Pain-Max: moderate Severity of Pain-Current: mild Modifying Factors: Improves With: other (Pain worse after he eats.) Associated Symptoms: No chest pain, No diaphoresis, No headache, No shortness of breath, No syncope, No testicular pain Previous symptoms: no prior history Allergies/Adverse Reactions: ketorolac tromethamine [From Toradol] Allergy (Severe, Verified 09/01/21 13:26) SEIZURE Home Medications: Amitriptyline HCl 25 mg PO DAILY 09/09/20 [History] Ezetimibe 10 mg PO DAILY 09/09/20 [History] Insulin Regular, Human [Humulin R] 15 unit SQ BID 09/09/20 [History] Metformin HCl 500 mg [Glucophage 500 MG] 500 mg PO BID 09/09/20 [History] NPH, Human Insulin Isophane [Humulin N] 30 units SQ BID 09/09/20 [History] Hx Tetanus, Diphtheria Vaccination/Date Given: Yes Hx Influenza Vaccination/Date Given: No Hx Pneumococcal Vaccination/Date Given: No Immunizations Up to Date: Yes Travel Risk - International Travel Have you traveled outside of the country in past 3 weeks: No - Coronavirus Screening Are you exhibiting any of the following symptoms?: No Close contact with a COVID-19 positive Pt in past 14-21 Days: No - Vaccine Status Have you recieved a Covid-19 vaccination: No - Review of Systems Constitutional: No Symptoms, No Fever, No Chills Eyes: No Symptoms Ears, Nose, & Throat: No Symptoms Respiratory: No Symptoms, No Cough, No Dyspnea Cardiac: No Symptoms, No Chest Pain, No Edema, No Syncope Abdominal/Gastrointestinal: No Symptoms, No Abdominal Pain, No Nausea, No Vomiting, No Diarrhea Genitourinary Symptoms: No Symptoms, No Dysuria Musculoskeletal: No Symptoms, No Back Pain, No Neck Pain Skin: No Symptoms, No Rash Neurological: No Symptoms, No Dizziness, No Focal Weakness, No Sensory Changes Psychological: No Symptoms Endocrine: No Symptoms Hematologic/Lymphatic: No Symptoms Immunological/Allergic: No Symptoms All Other Systems: Reviewed and Negative - Past Medical History Pertinent Past Medical History: Yes Neurological History: TIA ENT History: No Pertinent History Cardiac History: High Cholesterol, Hypertension Respiratory History: No Pertinent History Endocrine Medical History: Diabetes Type II Musculoskeletal History: No Pertinent History GI Medical History: No Pertinent History History: No Pertinent History Psycho-Social History: No Pertinent History Male Reproductive Disorders: No Pertinent History - Past Surgical History Past Surgical History: Yes Neuro Surgical History: No Pertinent History Cardiac: No Pertinent History Respiratory: No Pertinent History Gastrointestinal: No Pertinent History Genitourinary: No Pertinent History Musculoskeletal: No Pertinent History Male Surgical History: No Pertinent History Other Surgical History: urethral surgery - Social History Smoking Status: Current every day smoker How long have you smoked: years Exposure to second hand smoke: No Drug Use: none Patient Lives Alone: No - Nursing Vital Signs Nursing Vital Signs: Initial Vital Signs Temperature 98.3 F 09/01/21 13:27 Pulse Rate 83 09/01/21 13:27 Respiratory Rate 18 09/01/21 13:27 Blood Pressure 158/107 09/01/21 13:27 O2 Sat by Pulse Oximetry 97 09/01/21 13:27 Pain Scale Pain Intensity 4 - Physical Exam General Appearance: no apparent distress, alert Eye Exam: PERRL/EOMI, eyes nml inspection Ears, Nose, Throat Exam: normal ENT inspection, pharynx normal, moist mucous membranes Neck Exam: normal inspection, non-tender, supple, full range of motion Respiratory Exam: normal breath sounds, lungs clear, No respiratory distress Cardiovascular Exam: regular rate/rhythm, normal heart sounds Gastrointestinal/Abdomen Exam: soft, other (Epigastric tenderness to palpation.), No tenderness, No mass Back Exam: normal inspection, normal range of motion, No CVA tenderness, No vertebral tenderness Extremity Exam: normal inspection, normal range of motion, pelvis stable Neurologic Exam: alert, oriented x 3, cooperative, normal mood/affect, nml cerebellar function, sensation nml, No motor deficits Skin Exam: normal color, warm, dry Lymphatic Exam: No adenopathy SpO2 Interpretation: normal SpO2: 97 O2 Delivery: Room Air - Course Nursing assessment & vital signs reviewed: Yes - CT Exams Abdomen/Pelvis CT Interpretation: Discussed w/radiologist (Duodenal diverticulum, fatty liver and L5 spondylosis with grade [address] abdomen pelvis with contrast is again negative.) Ordered Tests: Active Orders 24 hr Category Date Time Status IV Insertion STAT Care 09/01/21 13:43 Active ABDOMEN AND PELVIS W CONTRAST [CT] Stat Exams 09/01/21 13:43 Completed CBC W DIFF Stat Lab 09/01/21 13:50 Completed CMP Stat Lab 09/01/21 13:50 Completed LIPASE Stat Lab 09/01/21 13:50 Completed TROPONIN Q3H Lab 09/01/21 16:15 Completed TROPONIN Q3H Lab 09/01/21 19:15 Ordered TROPONIN Q3H Lab 09/01/21 22:15 Ordered TROPONIN Q3H Lab 09/02/21 01:15 Ordered TROPONIN Q3H Lab 09/02/21 04:15 Ordered UA W/RFX UR CULTURE Stat Lab 09/01/21 13:47 Completed Medication Summary Generic Name Dose Route Start Last Admin Trade Name Freq PRN Reason Stop Dose Admin Sodium Chloride 1,000 mls @ 100 mls/hr 09/01/21 13:45 09/01/21 14:11 Sodium Chloride 0.9% 1000 Ml IV 10/01/21 13:44 100 mls/hr .Q10H [place] Administration Discontinued Medications Generic Name Dose Route Start Last Admin Trade Name Freq PRN Reason Stop Dose Admin Morphine Sulfate 4 mg 09/01/21 13:43 09/01/21 14:11 Morphine Sulfate 4 Mg/Ml Injection IV 09/01/21 13:44 4 mg STAT ONE Administration Morphine Sulfate Confirm 09/01/21 14:09 Morphine Sulfate 4 Mg/Ml Injection Administered 09/01/21 14:10 Dose 4 mg .ROUTE .STK-MED ONE Ondansetron HCl 4 mg 09/01/21 13:43 09/01/21 14:11 Ondansetron Hcl 4 Mg/2 Ml Vial IV 09/01/21 13:44 4 mg STAT ONE Administration Ondansetron HCl Confirm 09/01/21 14:09 Ondansetron Hcl 4 Mg/2 Ml Vial Administered 09/01/21 14:10 Dose 4 mg .ROUTE .STK-MED ONE Lab/Rad Data: Laboratory Result Diagrams 09/01/21 13:50 09/01/21 13:50 Laboratory Results 09/01/21 09/01/21 09/01/21 Range/Units 16:15 13:50 13:50 WBC 6.8 (4.0-10.5) K/mm3 RBC 5.13 (4.1-5.6) M/mm3 Hgb 16.3 (12.5-18.0) gm/dl Hct 47.2 (42-50) % MCV 92.0 (78-100) fl MCH 31.8 (26-32) pg MCHC 34.5 (32-36) g/dl RDW 12.7 (11.5-14.0) % Plt Count 298 (150-450) K/mm3 MPV 9.4 (7.5-11.0) fl Gran % 50.4 (36.0-66.0) % Eos # (Auto) 0.22 (0-0.5) Absolute Lymphs (auto) 2.49 (1.0-4.6) Absolute Monos (auto) 0.66 (0.0-1.3) Lymphocytes % 36.4 (24.0-44.0) % Monocytes % 9.6 (0.0-12.0) % Eosinophils % 3.2 (0.00-5.0) % Basophils % 0.4 (0.0-0.4) % Absolute Granulocytes 3.44 (1.4-6.9) Basophils # 0.03 (0-0.4) Sodium 135 L (137-145) mmol/L Potassium 3.9 (3.5-5.1) mmol/L Chloride 99 (98-107) mmol/L Carbon Dioxide 27 (22-30) mmol/L Anion Gap 13.2 (5-15) MEQ/L BUN 11 (9-20) mg/dL Creatinine 0.93 (0.66-1.25) mg/dL Estimated GFR > 60.0 ML/MIN Glucose 247 H (74-106) mg/dL Calcium 10.1 (8.4-10.2) mg/dL Total Bilirubin 0.80 (0.2-1.3) mg/dL AST 55 (17-59) U/L ALT 88 H (0-50) U/L Alkaline Phosphatase 72 (38-126) U/L Troponin I < 0.012 (0.000-0.034) ng/mL Serum Total Protein 7.3 (6.3-8.2) g/dL Albumin 4.6 (3.5-5.0) g/dL Lipase 46 (23-300) U/L Urine Color (YELLOW) Urine Appearance (CLEAR) Urine pH (5-6) Ur Specific [place] (1.005-1.025) Urine Protein (Negative) Urine Ketones (NEGATIVE) Urine Blood (0-5) Mikey/ul Urine Nitrite (NEGATIVE) Urine Bilirubin (NEGATIVE) Urine Urobilinogen (0-1) mg/dL Ur Leukocyte Esterase (NEGATIVE) Urine WBC (Auto) (0-5) /HPF Urine RBC (Auto) (0-2) /HPF U Epithel Cells (Auto) (FEW) /HPF Urine Bacteria (Auto) (NEGATIVE) /HPF Urine Culture Reflexed (NO) Urine Glucose (NEGATIVE) mg/dL 09/01/21 Range/Units 13:47 WBC (4.0-10.5) K/mm3 RBC (4.1-5.6) M/mm3 Hgb (12.5-18.0) gm/dl Hct (42-50) % MCV (78-100) fl MCH (26-32) pg MCHC (32-36) g/dl RDW (11.5-14.0) % Plt Count (150-450) K/mm3 MPV (7.5-11.0) fl Gran % (36.0-66.0) % Eos # (Auto) (0-0.5) Absolute Lymphs (auto) (1.0-4.6) Absolute Monos (auto) (0.0-1.3) Lymphocytes % (24.0-44.0) % Monocytes % (0.0-12.0) % Eosinophils % (0.00-5.0) % Basophils % (0.0-0.4) % Absolute Granulocytes (1.4-6.9) Basophils # (0-0.4) Sodium (137-145) mmol/L Potassium (3.5-5.1) mmol/L Chloride (98-107) mmol/L Carbon Dioxide (22-30) mmol/L Anion Gap (5-15) MEQ/L BUN (9-20) mg/dL Creatinine (0.66-1.25) mg/dL Estimated GFR ML/MIN Glucose (74-106) mg/dL Calcium (8.4-10.2) mg/dL Total Bilirubin (0.2-1.3) mg/dL AST (17-59) U/L ALT (0-50) U/L Alkaline Phosphatase (38-126) U/L Troponin I (0.000-0.034) ng/mL Serum Total Protein (6.3-8.2) g/dL Albumin (3.5-5.0) g/dL Lipase (23-300) U/L Urine Color STRAW (YELLOW) Urine Appearance CLEAR (CLEAR) Urine pH 6.0 (5-6) Ur Specific [place] 1.010 (1.005-1.025) Urine Protein NEGATIVE (Negative) Urine Ketones NEGATIVE (NEGATIVE) Urine Blood NEGATIVE (0-5) Mikey/ul Urine Nitrite NEGATIVE (NEGATIVE) Urine Bilirubin NEGATIVE (NEGATIVE) Urine Urobilinogen NEGATIVE (0-1) mg/dL Ur Leukocyte Esterase NEGATIVE (NEGATIVE) Urine WBC (Auto) NONE (0-5) /HPF Urine RBC (Auto) NONE (0-2) /HPF U Epithel Cells (Auto) NONE (FEW) /HPF Urine Bacteria (Auto) NONE (NEGATIVE) /HPF Urine Culture Reflexed NO (NO) Urine Glucose >=500 (NEGATIVE) mg/dL - Progress Progress: improved Progress Note: Patient reassessed. Pain improved. CT negative for acute intra-abdominal pathology. Hemoglobin symptoms unremarkable. Referring nurse practitioner was concerned for possible GI bleed due to dark stools. Patient may have this work- up done as an outpatient. Vitals are stable. Patient voices no other complaints at this time. Will discharge home. Patient agrees to follow-up with his primary care doctor within 48 hours for evaluation. He voices no other complaints or concerns at this time. Portions of this note were created with voice recognition technology. There may be grammatical, spelling, punctuation or sound alike errors 09/01/21 16:42 Counseled pt/family regarding: lab results, diagnosis, need for follow-up, rad results - Departure Departure Disposition: Home Clinical Impression: Duodenal diverticulum, Fatty liver, L5 spondylolysis, Spondylolisthesis, grade 1, Hyperglycemia, Abdominal pain Condition: Stable Critical Care Time: No Referrals: YOLANDA GORDON [Primary Care Provider] - Follow up/PCP as directed Additional Instructions: Discharge/Care Plan SOLITARIOEDGARTYLER DALE was seen on 09/01/21 in the Emergency Room. The patient was counseled regarding Diagnosis,Lab results, Imaging studies, need for follow up and when to return to the Emergency Room. Prescriptions given: Discharge Note I have spoken with the patient and/or caregivers. I have explained the patient's condition, diagnosis and treatment plan based on the information available to me at this time. I have answered the patient's and/or caregiver's questions and addressed any concerns. The patient and/or caregivers have as good understanding of the patient's diagnosis, condition and treatment plan as can be expected at this point. The vital signs have been stable. The patient's condition is stable and appropriate for discharge from the emergency department. The patient will pursue further outpatient evaluation with the primary care physician or other designated or consulting physician as outlined in the discharge instructions. The patient and/or caregivers are agreeable to this plan of care and follow-up instructions have been explained in detail. The patient and/or caregivers have received these instruction. The patient/and or caregivers are aware that any significant change in condition or worsening of symptoms should prompt an immediate return to this or the closest emergency department or call 911.
[2021-09-01 13:56] LABS: Absolute Neutrophil Ct (ANC) 3.44 (1.4-6.9); Basophil (Absolute #) 0.03 (0-0.4); Eosinophil % 3.2 % (0.00-5.0); Eosinophil (Absolute #) 0.22 (0-0.5); Hematocrit 47.2 % (42-50); Hemoglobin 16.3 gm/dl (12.5-18.0); Lymphocyte (Absolute #) 2.49 (1.0-4.6); Lymphocytes % 36.4 % (24.0-44.0); Mean Corpuscular Hemoglobin 31.8 pg (26-32); Mean Corpuscular Hgb Concent. 34.5 g/dl (32-36); Mean Platelet Volume 9.4 fl (7.5-11.0); Monocyte (Absolute #) 0.66 (0.0-1.3); Monocytes % 9.6 % (0.0-12.0); Neutrophil % 50.4 % (36.0-66.0); Platelet Count 298 K/mm3 (150-450); Red Blood Count 5.13 M/mm3 (4.1-5.6); Red Cell Distribution Width 12.7 % (11.5-14.0); White Blood Count 6.8 K/mm3 (4.0-10.5)
[2021-09-01 13:58] LABS: Appearance CLEAR (CLEAR); Bilirubin NEGATIVE (NEGATIVE); Blood NEGATIVE Ery/ul (0-5); Glucose >=500 mg/dL (NEGATIVE); Ketones NEGATIVE (NEGATIVE); Leukocyte Esterase NEGATIVE (NEGATIVE); Nitrite NEGATIVE (NEGATIVE); Protein,Urine Dip NEGATIVE (Negative); Urobilinogen NEGATIVE mg/dL (0-1)
[2021-09-01] MEDS ORDERED: Zofran 4 MG/2 ML VIAL ONE (14:09)
[2021-09-01] MEDS ORDERED: MORPHINE SULFATE 4 MG INJ ONE (14:09)
[2021-09-01] MEDS ORDERED: Sodium Chloride 0.9% 1000 ML 1,000 ML ONE (14:10)
--- NOTE | 2021-09-01 14:19 | XRAY ---
Indication: "Burning" in abdomen. Nausea, vomiting, and diarrhea. Multiple contiguous axial images obtained through the abdomen and pelvis using 80 cc Isovue 370 contrast. Comparison: May 31, 2017. Lung bases demonstrates minimal dependent atelectasis. No infiltrate or effusion. Heart not enlarged. Noncontrasted stomach and bowel loops nonobstructed with normal appendix. Descending duodenum again demonstrates 1.5 cm diverticulum. No free fluid/air. Mild diffuse fatty liver. Remaining liver, gallbladder, pancreas, spleen, adrenal glands, kidneys, ureters, and bladder are unremarkable. Minimal scattered aortoiliac calcifications. No AAA or pathologic retroperitoneal lymphadenopathy. Osseous structures again demonstrates L5 spondylolysis with minimal grade 1 spondylolisthesis. Impression: 1. Again duodenal diverticulum, fatty liver, and L5 spondylolysis with grade [address] 2[address] abdomen/pelvis with contrast exam is again negative.
[2021-09-01 14:29] LABS: ALBUMIN 4.6 g/dL (3.5-5.0); ALKALINE PHOSPHATASE 72 U/L (38-126); ANION GAP 13.2 MEQ/L (5-15); BLOOD UREA NITROGEN 11 mg/dL (9-20); CHLORIDE 99 mmol/L (98-107); Calcium 10.1 mg/dL (8.4-10.2); Carbon Dioxide 27 mmol/L (22-30); Creatinine 1 0.93 mg/dL (0.66-1.25); EST GLOMERULAR FILTRATION RATE > 60.0 ML/MIN; Glucose 247 mg/dL (74-106); LIPASE 46 U/L (23-300); Potassium 3.9 mmol/L (3.5-5.1); SGOT/AST 55 U/L (17-59); SGPT/ALT 88 U/L (0-50); SODIUM 135 mmol/L (137-145); Total Protein 7.3 g/dL (6.3-8.2)
[2021-09-01 16:09] VITALS: O2SAT 97
[2021-09-01 16:46] VITALS: BP 135/90; PULSE 63
== END 2021-09-01 16:54 | disposition home or self-care (01) ==
LOC: ED 13:17
DX: K57.10 Diverticulosis of small intestine without perforation or abscess without bleeding (principal); K76.0 Fatty (change of) liver, not elsewhere classified; M43.16 Spondylolisthesis, lumbar region; E11.65 Type 2 diabetes mellitus with hyperglycemia; R10.13 Epigastric pain; R11.0 Nausea; R19.7 Diarrhea, unspecified; K92.1 Melena; Z79.4 Long term (current) use of insulin; Z79.84 Long term (current) use of oral hypoglycemic drugs; I10 Essential (primary) hypertension; E78.5 Hyperlipidemia, unspecified; Z72.0 Tobacco use
CPT/HCPCS: 36000; 36415; 74177; 80053; 81001; 83690; 84484; 85025; 96374; 96375; 99284; J2270; J2405

== ENCOUNTER 2022-07-25 14:32 | Emergency (ER) | payer BC ==
[2022-07-25] MEDS ORDERED: BABY ASPIRIN 81 MG CHEW PO ONE (15:00)
[2022-07-25] MEDS ORDERED: Sodium Chloride 0.9% 1000 ML 1,000 ML IV STA (15:00)
--- NOTE | 2022-07-25 15:12 | ERPHSYRPT ---
- History of Present Illness Time Seen by Provider: 07/25/22 15:09 Source: patient, family Exam Limitations: no limitations Patient Subjective Stated Complaint: Intermittent dizziness and weakness since last night. Weakness is not one sided; c/o weakeness to BUE. Triage Nursing Assessment: Patient ambulated back to ED. No SOB noted. He is alert but slow to respond at times; flat affect. Skin tone normal. Insulin pump noted to abdomen. Able to COTTON WNL without difficulties. C/O pain in left ear when attempt to examine ears due to patient indicates during exam that everyone sounds far away. Physician History: Intermittent dizziness and weakness since last night. Weakness is not one sided; c/o weakeness to BUE. C/O pain in left ear when attempt to examine ears due to patient indicates during exam that everyone sounds far away. Timing/Duration: yesterday Severity: moderate Allergies/Adverse Reactions: ketorolac tromethamine [From Toradol] Allergy (Severe, Verified 07/25/22 14:44) SEIZURE Home Medications: Amitriptyline HCl 50 mg PO HS 09/09/20 [History] Dulaglutide [Trulicity] 1 amp SQ WEEKLY 07/25/22 [History] Insulin Aspart (Niacinamide) [Fiasp 100 Unit/ml Vial] See Protocol SQ DAILY 07/25/22 [History] Isosorbide Mononitrate 30 mg [Imdur 30 MG] 90 mg PO DAILY 07/25/22 [History] Lisinopril 10 mg [Zestril 10 MG] 1 tab PO DAILY 07/25/22 [History] Rosuvastatin Calcium 1 tab PO DAILY 07/25/22 [History] Simvastatin 10 mg [Zocor 10MG] 1 tab PO HS 07/25/22 [History] Testosterone Cypionate 100 mg IM DIRECTIONS UNKNOWN 07/25/22 [History] Hx Tetanus, Diphtheria Vaccination/Date Given: Yes Hx Influenza Vaccination/Date Given: No Hx Pneumococcal Vaccination/Date Given: No Immunizations Up to Date: Yes Travel Risk - International Travel Have you traveled outside of the country in past 3 weeks: No - Coronavirus Screening Are you exhibiting any of the following symptoms?: Yes Symptoms: Fever, Headaches/Body Aches/Fatigue Close contact with a COVID-19 positive Pt in past 14-21 Days: No - Vaccine Status Have you recieved a Covid-19 vaccination: No - Review of Systems Constitutional: Lethargy, Malaise, Weakness, No Fever, No Chills Eyes: No Symptoms Ears, Nose, & Throat: No Symptoms Respiratory: No Cough, No Dyspnea Cardiac: No Chest Pain, No Edema, No Syncope Abdominal/Gastrointestinal: No Abdominal Pain, No Nausea, No Vomiting, No Diarrhea Genitourinary Symptoms: No Dysuria Musculoskeletal: No Back Pain, No Neck Pain Skin: No Rash Neurological: Dizziness, Focal Weakness, Sensory Changes Psychological: No Symptoms Endocrine: No Symptoms All Other Systems: Reviewed and Negative - Past Medical History Pertinent Past Medical History: Yes Neurological History: TIA ENT History: No Pertinent History Cardiac History: High Cholesterol, Hypertension Respiratory History: No Pertinent History Endocrine Medical History: Diabetes Type II Musculoskeletal History: No Pertinent History GI Medical History: No Pertinent History History: No Pertinent History Psycho-Social History: No Pertinent History Male Reproductive Disorders: No Pertinent History - Past Surgical History Past Surgical History: Yes Neuro Surgical History: No Pertinent History Cardiac: No Pertinent History Respiratory: No Pertinent History Gastrointestinal: No Pertinent History Genitourinary: No Pertinent History Musculoskeletal: No Pertinent History Male Surgical History: No Pertinent History Other Surgical History: urethral surgery - Social History Smoking Status: Current every day smoker How long have you smoked: years Exposure to second hand smoke: No Drug Use: none Patient Lives Alone: No - Nursing Vital Signs Nursing Vital Signs: Initial Vital Signs Pulse Rate 100 H 07/25/22 14:45 Respiratory Rate 30 H 07/25/22 14:45 Blood Pressure 128/85 07/25/22 14:45 O2 Sat by Pulse Oximetry 97 07/25/22 14:45 Pain Scale Pain Intensity 0 - Physical Exam General Appearance: no apparent distress, alert Eye Exam: PERRL/EOMI, eyes nml inspection Ears, Nose, Throat Exam: normal ENT inspection, TMs normal, pharynx normal, moist mucous membranes Neck Exam: normal inspection, non-tender, supple, full range of motion Respiratory Exam: normal breath sounds, lungs clear, No respiratory distress Cardiovascular Exam: regular rate/rhythm, normal heart sounds, normal peripheral pulses Gastrointestinal/Abdomen Exam: soft, normal bowel sounds, No tenderness, No mass Back Exam: normal inspection, normal range of motion, No CVA tenderness, No vertebral tenderness Extremity Exam: normal inspection, normal range of motion, pelvis stable Neurologic Exam: alert, oriented x 3, cooperative, sensory deficit, No motor de ficits Skin Exam: normal color, warm, dry, No rash Lymphatic Exam: No adenopathy SpO2: 97 - Course Nursing assessment & vital signs reviewed: Yes EKG Interpreted by Me: Sinus Rhythm - CT Exams Head CT Interpretation: Tele-radiologist Report, No/Intracranial Hemorrhag Ordered Tests: Active Orders 24 hr Category Date Time Status [employer] STAT Care 07/25/22 15:01 Active EKG-ER Only STAT Care 07/25/22 15:00 Active HEAD WITHOUT CONTRAST [CT] Stat Exams 07/25/22 15:01 Taken CBC W DIFF Stat Lab 07/25/22 15:49 Completed CMP Stat Lab 07/25/22 15:49 Completed PROTIME WITH INR Stat Lab 07/25/22 15:49 Completed UA W/RFX CULTURE Stat Lab 07/25/22 Ordered Medication Summary Discontinued Medications Generic Name Dose Route Start Last Admin Trade Name Freq PRN Reason Stop Dose Admin Aspirin 81 mg 07/25/22 15:00 07/25/22 15:29 Aspirin 81 Mg Tab.Chew PO 07/25/22 15:01 81 mg STAT ONE Administration Aspirin Confirm 07/25/22 15:28 Aspirin 81 Mg Tab.Chew Administered 07/25/22 15:29 Dose 81 mg .ROUTE .STK-MED ONE Sodium Chloride 1,000 mls @ 999 mls/hr 07/25/22 15:00 07/25/22 16:31 Sodium Chloride 0.9% 1000 Ml IV 07/25/22 16:00 Infused .Q1H1M STA Infusion Sodium Chloride Confirm 07/25/22 15:28 Sodium Chloride 0.9% 1000 Ml Administered 07/25/22 15:29 Dose 1,000 mls @ ud .ROUTE .STK-MED ONE Lab/Rad Data: Laboratory Result Diagrams 07/25/22 15:49 07/25/22 15:49 Laboratory Results 07/25/22 07/25/22 07/25/22 Range/Units 16:20 15:49 15:49 WBC (4.0-10.5) x10^3/uL RBC (4.1-5.6) x10^6/uL Hgb (12.5-18.0) g/dL Hct (42-50) % MCV (78-100) fL MCH (26-32) pg MCHC (32-36) g/dL RDW (11.5-14.0) % Plt Count (150-450) x10^3/uL MPV (7.5-11.0) fL Gran % (36.0-66.0) % Immature Gran % (Auto) (0.00-0.4) % Nucleat RBC Rel Count (0.00-0.1) % Eos # (Auto) (0-0.5) x10^3/uL Immature Gran # (Auto) (0.00-0.03) x10^3u/L Absolute Lymphs (auto) (1.0-4.6) x10^3/uL Absolute Monos (auto) (0.0-1.3) x10^3/uL Absolute Nucleated RBC (0.00-0.01) x10^3u/L Lymphocytes % (24.0-44.0) % Monocytes % (0.0-12.0) % Eosinophils % (0.00-5.0) % Basophils % (0.0-0.4) % Absolute Granulocytes (1.4-6.9) x10^3/uL Basophils # (0-0.4) x10^3/uL PT 11.2 (9.4-12.5) SECONDS INR 1.06 (0.8-3.0) Sodium 135 L (137-145) mmol/L Potassium 4.6 (3.5-5.1) mmol/L Chloride 101 (98-107) mmol/L Carbon Dioxide 30 (22-30) mmol/L Anion Gap 9.2 (5-15) MEQ/L BUN 16 (9-20) mg/dL Creatinine 0.88 (0.66-1.25) mg/dL Estimated GFR > 60.0 ML/MIN Glucose 239 H (74-106) mg/dL Calcium 9.1 (8.4-10.2) mg/dL Total Bilirubin 0.50 (0.2-1.3) mg/dL AST 46 (17-59) U/L ALT 60 H (0-50) U/L Alkaline Phosphatase 73 (38-126) U/L Serum Total Protein 6.5 (6.3-8.2) g/dL Albumin 3.9 (3.5-5.0) g/dL Influenza Type A Ag NEGATIVE (NEGATIVE) Influenza Type B Ag NEGATIVE (NEGATIVE) RSV (PCR) NEGATIVE (Negative) SARS-CoV-2 (PCR) NEGATIVE (NEGATIVE) 07/25/22 Range/Units 15:49 WBC 9.6 (4.0-10.5) x10^3/uL RBC 4.09 L (4.1-5.6) x10^6/uL Hgb 13.4 (12.5-18.0) g/dL Hct 39.0 L (42-50) % MCV 95.4 (78-100) fL MCH 32.8 H (26-32) pg MCHC 34.4 (32-36) g/dL RDW 12.4 (11.5-14.0) % Plt Count 230 (150-450) x10^3/uL MPV 8.9 (7.5-11.0) fL Gran % 74.5 H (36.0-66.0) % Immature Gran % (Auto) 0.3 (0.00-0.4) % Nucleat RBC Rel Count 0.0 (0.00-0.1) % Eos # (Auto) 0.12 (0-0.5) x10^3/uL Immature Gran # (Auto) 0.03 (0.00-0.03) x10^3u/L Absolute Lymphs (auto) 1.63 (1.0-4.6) x10^3/uL Absolute Monos (auto) 0.62 (0.0-1.3) x10^3/uL Absolute Nucleated RBC 0.00 (0.00-0.01) x10^3u/L Lymphocytes % 17.1 L (24.0-44.0) % Monocytes % 6.5 (0.0-12.0) % Eosinophils % 1.3 (0.00-5.0) % Basophils % 0.3 (0.0-0.4) % Absolute Granulocytes 7.13 H (1.4-6.9) x10^3/uL Basophils # 0.03 (0-0.4) x10^3/uL PT (9.4-12.5) SECONDS INR (0.8-3.0) Sodium (137-145) mmol/L Potassium (3.5-5.1) mmol/L Chloride (98-107) mmol/L Carbon Dioxide (22-30) mmol/L Anion Gap (5-15) MEQ/L BUN (9-20) mg/dL Creatinine (0.66-1.25) mg/dL Estimated GFR ML/MIN Glucose (74-106) mg/dL Calcium (8.4-10.2) mg/dL Total Bilirubin (0.2-1.3) mg/dL AST (17-59) U/L ALT (0-50) U/L Alkaline Phosphatase (38-126) U/L Serum Total Protein (6.3-8.2) g/dL Albumin (3.5-5.0) g/dL Influenza Type A Ag (NEGATIVE) Influenza Type B Ag (NEGATIVE) RSV (PCR) (Negative) SARS-CoV-2 (PCR) (NEGATIVE) - Progress Progress: improved Counseled pt/family regarding: lab results, diagnosis, need for follow-up, rad results - Departure Departure Disposition: Home Clinical Impression: TIA (transient ischemic attack), Insulin dependent diabetes mellitus Condition: Stable Critical Care Time: Yes Critical Care Time(excluding separately billable procedures): Critical 30-74 mins Referrals: YOLANDA GORDON [Primary Care Provider] - Follow up/PCP as directed Instructions: Transient Ischemic Attack (DC) Additional Instructions: Discharge/Care Plan TYLER CALIXTO DAVID was seen on 07/25/22 in the Emergency Room. The patient was counseled regarding Diagnosis,Lab results, Imaging studies, need for follow up and when to return to the Emergency Room. Prescriptions given: Discharge Note I have spoken with the patient and/or caregivers. I have explained the patient's condition, diagnosis and treatment plan based on the information available to me at this time. I have answered the patient's and/or caregiver's questions and addressed any concerns. The patient and/or caregivers have as good understanding of the patient's diagnosis, condition and treatment plan as can be expected at this point. The vital signs have been stable. The patient's condition is stable and appropriate for discharge from the emergency department. The patient will pursue further outpatient evaluation with the primary care physician or other designated or consulting physician as outlined in the discharge instructions. The patient and/or caregivers are agreeable to this plan of care and follow-up instructions have been explained in detail. The patient and/or caregivers have received these instruction. The patient/and or caregivers are aware that any significant change in condition or worsening of symptoms should prompt an immediate return to this or the closest emergency department or call 911. TYLER CALIXTO was seen on 07/25/22 n the Emergency Room. At that time you were treated for an emergent condition, during your visit Laboratory, Radiology and/or other procedures may have been ordered. It is very important that you follow-up with your Primary Care Physician YOLANDA GORDON within the next 24-48 hours to review your Emergency Room visit and the final results of testing that was ordered. Some test results such as Urine Cultures, Blood Cultures, and ot her cultures if ordered will not be finalized for 24-48 hours. If you do not have a Primary Care Provider please call the medical records department at [phone] to obtain a copy of your results or you may sign into our patient portal to obtain these results by visiting us @ [email or web address] and completing the following steps: 1. Click on the Patient Portal link 2. Click the Patient Self Enrollment Link to complete the enrollment form and entering your 3. Once the enrollment form is completed you will receive an email with a temporary ID and password at the email address you provided. 4. Next choose a user name and password. Your user name must be at least 4 characters long and your password must be at least 4 characters long. 5. Choose a security question from the list and provide your answer to the question. If you already have signed into the Health Portal you may access your Health Care Information 15/03 by the following steps: 1. Login to our website @ [email or web address] 2. Enter your original user name and password. FAQS The [facility] Health Portal is an online tool that contains your Lab Results, Radiology Reports, Visit History, Discharge Instructions and Health Summary Lab and Radiology Results will not be available for 72 hours on the portal. The Portal is a secure site, passwords are encryted and URLs are re-written so they cannot be copied and pasted. You and authorized family members are the only ones who can access your Portal. Also there is a timeout feature that protects your information if you leave the Portal page open. If you have technical difficulty please use the Contact Us link on the page this will allow you to submit any questions you have regarding the Portal or you may contact the Medical Record Department at [phone].
[2022-07-25] MEDS ORDERED: BABY ASPIRIN 81 MG CHEW ONE (15:28)
[2022-07-25] MEDS ORDERED: Sodium Chloride 0.9% 1000 ML 1,000 ML ONE (15:28)
[2022-07-25 15:49] LABS: Absolute Neutrophil Ct (ANC) 7.13 x10^3/uL (1.4-6.9); Basophil (Absolute #) 0.03 x10^3/uL (0-0.4); Eosinophil % 1.3 % (0.00-5.0); Eosinophil (Absolute #) 0.12 x10^3/uL (0-0.5); Hemoglobin 13.4 g/dL (12.5-18.0); Lymphocyte (Absolute #) 1.63 x10^3/uL (1.0-4.6); Lymphocytes % 17.1 % (24.0-44.0); Mean Cell Volume 95.4 fL (78-100); Mean Corpuscular Hemoglobin 32.8 pg (26-32); Mean Corpuscular Hgb Concent. 34.4 g/dL (32-36); Mean Platelet Volume 8.9 fL (7.5-11.0); Monocyte (Absolute #) 0.62 x10^3/uL (0.0-1.3); Monocytes % 6.5 % (0.0-12.0); Neutrophil % 74.5 % (36.0-66.0); Platelet Count 230 x10^3/uL (150-450); Red Blood Count 4.09 x10^6/uL (4.1-5.6); Red Cell Distribution Width 12.4 % (11.5-14.0); White Blood Count 9.6 x10^3/uL (4.0-10.5)
[2022-07-25 16:04] LABS: INR 1.06 (0.8-3.0); PROTIME 11.2 SECONDS (9.4-12.5)
[2022-07-25 16:06] LABS: ALBUMIN 3.9 g/dL (3.5-5.0); ALKALINE PHOSPHATASE 73 U/L (38-126); ANION GAP 9.2 MEQ/L (5-15); BLOOD UREA NITROGEN 16 mg/dL (9-20); CHLORIDE 101 mmol/L (98-107); Calcium 9.1 mg/dL (8.4-10.2); Carbon Dioxide 30 mmol/L (22-30); Creatinine 1 0.88 mg/dL (0.66-1.25); EST GLOMERULAR FILTRATION RATE > 60.0 ML/MIN; Glucose 239 mg/dL (74-106); Potassium 4.6 mmol/L (3.5-5.1); SGOT/AST 46 U/L (17-59); SGPT/ALT 60 U/L (0-50); SODIUM 135 mmol/L (137-145); Total Protein 6.5 g/dL (6.3-8.2)
[2022-07-25 16:49] LABS: INFLUENZA A NEGATIVE (NEGATIVE); INFLUENZA B NEGATIVE (NEGATIVE); RESPIRATORY SYNCTIAL VIRUS NEGATIVE (Negative); SARS-CoV-2 Xpert Express NEGATIVE (NEGATIVE)
[2022-07-25 17:03] VITALS: BP 120/74; PULSE 77
[2022-07-25 17:18] VITALS: O2SAT 97
--- NOTE | 2022-07-25 17:48 | XRAY ---
Indication: Slurred speech, dizziness, double vision, lethargy, and lip numbness. TIA. Multiple contiguous axial images obtained through the head without contrast. Comparison: September 09, 2020 Ventriculoulcal pattern appears symmetric. Tiny remote bilateral basal ganglia lacunar infarcts. No acute intracranial hemorrhage, abnormal extra-axial fluid collection, or mass effect. Fourth ventricle is midline without hydrocephalus. Guzmán-white matter differentiation preserved. Bony calvarium intact. Visualized paranasal sinuses and mastoid air cells are clear. 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 No acute intracranial abnormalities. Comment: Preliminary interpretation made by [facility]. No critical discrepancy.
== END 2022-07-25 17:45 | disposition home or self-care (01) ==
LOC: ED 14:32
DX: G45.9 Transient cerebral ischemic attack, unspecified (principal); E11.9 Type 2 diabetes mellitus without complications; R42 Dizziness and giddiness; R53.1 Weakness; H92.02 Otalgia, left ear; E78.5 Hyperlipidemia, unspecified; I10 Essential (primary) hypertension; Z79.85 Long-term (current) use of injectable non-insulin antidiabetic drugs; Z79.4 Long term (current) use of insulin; Z79.899 Other long term (current) drug therapy; Z28.310 Unvaccinated for COVID-19; Z72.0 Tobacco use
CPT/HCPCS: 0241U; 36415; 70450; 80053; 85025; 85610; 93005; 93041; 99284; 99291; A9270-GY